=== PATIENT | female | born 1960 | race Caucasian/White ===

== ENCOUNTER → 2024-03-19 17:18 | Outpatient (REF) | payer BC, SELFPAY | LOC: WDC 17:18 | PROVIDERS: ATTENDING PHYSICIAN Nurse Practitioner Family | DX: Z12.31 Encounter for screening mammogram for malignant neoplasm of breast (principal) | CPT/HCPCS: 77063; 77067 ==

== ENCOUNTER 2024-11-26 06:29 | Day surgery (SDC) | payer BC, SELFPAY ==
[2024-11-17 12:25] VITALS: BMI 21.4
[2024-11-26] VITALS (9 sets, daily range): BP systolic 105–165; BP diastolic 60–87; BMI 21.4
[2024-11-26] MEDS: NORMOSOL-R/PLASMALYTE-A 1000 IV (07:07)
== END 2024-11-26 09:59 | disposition home or self-care (01) ==
LOC: SDS 06:29
PROVIDERS: ATTENDING PHYSICIAN Surgery; FAMILY PHYSICIAN Nurse Practitioner Family
DX: K64.3 Fourth degree hemorrhoids (principal)
CPT/HCPCS: 46255; 46945; 88304; 36415; 93005

== ENCOUNTER → 2025-01-22 13:32 | Outpatient (REF) | payer BC, SELFPAY ==
[2025-01-29 02:50] LABS: HPV, High Risk Not Detected; HPV, High Risk Source Anal
== END ==
LOC: CLAB 13:32
PROVIDERS: ATTENDING PHYSICIAN Surgery
DX: Z86.19 Personal history of other infectious and parasitic diseases (principal)
CPT/HCPCS: 87624; 88112

== ENCOUNTER → 2025-03-02 14:57 | Outpatient (REF) | payer BC, SELFPAY | LOC: RAD 14:57 | PROVIDERS: ATTENDING PHYSICIAN Nurse Practitioner Family | DX: M25.511 Pain in right shoulder (principal) | CPT/HCPCS: 73030 ==

== ENCOUNTER → 2025-06-11 13:04 | Outpatient (REF) | payer BC, SELFPAY | LOC: WDC 13:04 | PROVIDERS: ATTENDING PHYSICIAN Family Medicine | DX: Z12.39 Encounter for other screening for malignant neoplasm of breast (principal); Z12.31 Encounter for screening mammogram for malignant neoplasm of breast | CPT/HCPCS: 77063; 77067 ==